=== PATIENT | male | born 1970 | race African-American/Black ===

== ENCOUNTER 2020-05-31 12:46 | Emergency (ER) | payer SELFPAY ==
[~2020-05-31] VITALS: Ht 177.8 cm; Wt 100.0 kg
[2020-05-31] MEDS ORDERED: IBUPROFEN 800MG TABLET PO ONE (13:30)
[2020-05-31] MEDS ORDERED: IBUP-2029 MT (14:23)
[2020-05-31 15:01] VITALS: BP 132/89
== END 2020-05-31 15:03 | disposition home or self-care (01) ==
LOC: ER 13:00
DX: S80.11XA Contusion of right lower leg, initial encounter (principal); Y08.89XA Assault by other specified means, initial encounter; Y93.89 Activity, other specified; Y92.89 Other specified places as the place of occurrence of the external cause; Y99.8 Other external cause status
CPT/HCPCS: 73610; 73630; 99284; Z7610